=== PATIENT | female | born 1960 | race Two or more races ===

== ENCOUNTER 2019-11-20 08:04 | Inpatient (IN) | payer MEDICAID ==
[~2019-11-20] VITALS: Ht 160 cm; Wt 67.1 kg
[2019-11-20] MEDS ORDERED: ASPIRIN 81MG TABLET PO ONE (08:45)
[2019-11-20] MEDS ORDERED: DILTIAZEM HCL 5MG/ML 5ML VIAL IV ONE (08:45)
[2019-11-20] MEDS ORDERED: DILTIAZEM HCL 125 MG in DEXT 5% WATER 100 ML IV ONE (08:45)
[2019-11-20 09:11] LABS: BASOPHILS % 0.5 % (0.0-2.0); EOSINOPHILS % 1.1 % (0.0-5.0); HEMOGLOBIN. 13.8 g/dL (12.0-16.0); LYMPHOCYTES % 33.5 % (20.0-50.0); MEAN CORPUSCULAR HEMOGLOBIN 30.7 pg (28.0-32.0); MEAN CORPUSCULAR VOLUME 91.5 fL (81.0-99.0); MEAN PLATELET VOLUME 8.5 fl (7.4-10.4); MONOCYTES % 6.6 % (2.0-8.0); NEUTROPHILS % 58.3 % (40.0-76.0); PLATELET 297 x1000/uL (130-400); RED BLOOD CELL COUNT 4.49 mill/uL (4.2-5.4); RED CELL DISTRIBUTION WIDTH 14.8 % (11.6-14.6)
[2019-11-20 09:17] LABS: CHLORIDE 105 mEq/L (98-107)
[2019-11-20 09:20] LABS: INR 1.1; PARTIAL THROMBOPLASTIN TIME 29.4 sec (23.4-31.0); PROTHROMBIN TIME 11.6 sec (9.6-11.0)
[2019-11-20] MEDS ORDERED: SODIUM CHLORIDE 0.9% 1,000 ML IV ONE (09:45)
[2019-11-20] MEDS ORDERED: METOPROLOL TARTRATE 5MG/5ML VIAL IV SCH (09:45)
[2019-11-20] MEDS ORDERED: ETOMIDATE 2MG/ML 10ML VIAL IV ONE (11:30)
[2019-11-20] MEDS ORDERED: ACETAMINOPHEN 325MG TABLET PO PRN (15:00)
[2019-11-20] MEDS ORDERED: DIPHENHYDRAMINE 50MG/ML VIAL IV PRN (15:00)
[2019-11-20] MEDS ORDERED: IPRATROPIUM/ALBUTEROL 0.5-3(2.5)MG/3ML NEB HHN PRN (15:00)
[2019-11-20] MEDS ORDERED: ONDANSETRON HCL 4MG/2ML INJ IV PRN (15:00)
[2019-11-20 15:31] LABS: PHOSPHORUS 3.2 mg/dL (2.5-4.9)
[2019-11-20 21:30] VITALS: BP 125/75
[2019-11-20] MEDS ORDERED: RIVA20TA PO (22:38)
[2019-11-20] MEDS ORDERED: P20 PO (22:38)
[2019-11-20] MEDS ORDERED: ASPI-1497 PO (22:38)
[2019-11-20] MEDS ORDERED: LEVO75TA7 PO (22:38)
[2019-11-20] MEDS ORDERED: CARV12.545 PO (22:38)
[2019-11-20] MEDS ORDERED: METF-414 PO (22:38)
[2019-11-20] MEDS ORDERED: TOPUD PO (22:38)
[2019-11-20] MEDS ORDERED: LISI-604 PO (22:38)
[2019-11-20] MEDS ORDERED: ESCI10TA61 PO (22:38)
[2019-11-20] MEDS ORDERED: ALBU18HF2 IH (22:38)
[2019-11-20] MEDS ORDERED: SIMV-43 PO (22:38)
[2019-11-20] MEDS ORDERED: CHOL500063 PO (22:38)
[2019-11-20] MEDS ORDERED: DEXTROSE 50% WATER 50ML SYRINGE IV PRN (22:45)
[2019-11-20] MEDS ORDERED: FAMO-135 PO (23:29)
[2019-11-20] MEDS ORDERED: PANT40TA4 PO (23:29)
[2019-11-21] VITALS: BP 130/66
[2019-11-21 04:00] VITALS: BP 145/77
[2019-11-21 06:07] LABS: BASOPHILS % 0.4 % (0.0-2.0); EOSINOPHILS % 2.1 % (0.0-5.0); HEMATOCRIT. 37.7 % (36.0-48.0); HEMOGLOBIN. 12.9 g/dL (12.0-16.0); LYMPHOCYTES % 33.9 % (20.0-50.0); MEAN CORPUSCULAR HEMOGLOBIN 31.2 pg (28.0-32.0); MEAN CORPUSCULAR VOLUME 91.2 fL (81.0-99.0); MEAN PLATELET VOLUME 8.6 fl (7.4-10.4); MONOCYTES % 9.1 % (2.0-8.0); NEUTROPHILS % 54.5 % (40.0-76.0); PLATELET 224 x1000/uL (130-400); RED BLOOD CELL COUNT 4.13 mill/uL (4.2-5.4); RED CELL DISTRIBUTION WIDTH 14.8 % (11.6-14.6)
[2019-11-21 06:30] LABS: CHLORIDE 110 mEq/L (98-107)
[2019-11-21 06:39] LABS: LDL CHOLESTEROL 128 mg/dL (5-100)
[2019-11-21 06:41] LABS: HDL CHOLESTEROL 60 mg/dL (40-59)
[2019-11-21] MEDS: LEVOTHYROXINE SODIUM 75MCG TABLET PO SCH (07:10)
[2019-11-21] MEDS: INSULIN LISPRO 100 UNITS/ML SUBCUT SCH ×4 (07:40→20:36)
[2019-11-21] MEDS: BLOOD SUGAR DIAGNOSTIC STRIP TEST SCH ×4 (07:51→20:36)
[2019-11-21 08:00] VITALS: BP 140/79
[2019-11-21] MEDS ORDERED: REGADENOSON 0.4 MG/5 ML IV NR (11:15)
[2019-11-21] MEDS: METOPROLOL TARTRATE 25MG TABLET PO SCH ×2 (11:31→20:26)
[2019-11-21 12:00] VITALS: BP 147/83
[2019-11-21 16:00] VITALS: BP 139/83
[2019-11-21] MEDS: RIVAROXABAN 20 MG TABLET PO SCH (17:28)
[2019-11-21 20:00] VITALS: BP 153/92
[2019-11-21] MEDS: LISINOPRIL 10MG TABLET PO SCH (20:27)
[2019-11-21] MEDS ORDERED: ATORVASTATIN CALCIUM 10MG TABLET PO SCH (21:00)
[2019-11-21] MEDS ORDERED: ATORVASTATIN CALCIUM 20MG TABLET PO SCH (21:00)
[2019-11-22] VITALS: BP 127/67
[2019-11-22 04:00] VITALS: BP 148/90
[2019-11-22 06:18] LABS: BASOPHILS % 0.4 % (0.0-2.0); EOSINOPHILS % 1.8 % (0.0-5.0); HEMATOCRIT. 40.6 % (36.0-48.0); HEMOGLOBIN. 13.7 g/dL (12.0-16.0); LYMPHOCYTES % 31.7 % (20.0-50.0); MEAN CORPUSCULAR HEMOGLOBIN 30.9 pg (28.0-32.0); MEAN CORPUSCULAR VOLUME 91.5 fL (81.0-99.0); MEAN PLATELET VOLUME 8.6 fl (7.4-10.4); NEUTROPHILS % 53.1 % (40.0-76.0); PLATELET 237 x1000/uL (130-400); RED BLOOD CELL COUNT 4.44 mill/uL (4.2-5.4); RED CELL DISTRIBUTION WIDTH 14.6 % (11.6-14.6)
[2019-11-22] MEDS: INSULIN LISPRO 100 UNITS/ML SUBCUT SCH ×3 (06:40→17:14)
[2019-11-22] MEDS: BLOOD SUGAR DIAGNOSTIC STRIP TEST SCH ×3 (06:40→17:14)
[2019-11-22] MEDS: LEVOTHYROXINE SODIUM 75MCG TABLET PO SCH (06:42)
[2019-11-22 06:55] LABS: CHLORIDE 106 mEq/L (98-107)
[2019-11-22 08:00] VITALS: BP 128/77
[2019-11-22] MEDS: METOPROLOL TARTRATE 25MG TABLET PO SCH (09:12)
[2019-11-22] MEDS: LISINOPRIL 10MG TABLET PO SCH (09:13)
[2019-11-22 12:00] VITALS: BP 139/90
[2019-11-22 16:00] VITALS: BP 130/74
[2019-11-22] MEDS: RIVAROXABAN 20 MG TABLET PO SCH (17:14)
[2019-11-22] MEDS ORDERED: APIX5TAB MT (19:32)
[2019-11-22 20:17] VITALS: BP 146/88
== END 2019-11-22 21:05 | disposition home or self-care (01) | DRG 201 ==
LOC: ER 08:11 → EDBEDREQTM 13:35 → EDBEDREQ 13:35 → ENRESERV 19:47 → 8WST 21:10
PROVIDERS: ADMIT Internal Medicine; ATTEND Internal Medicine
PROC: 5A2204Z Restoration of Cardiac Rhythm, Single (ICD-10-PCS; principal; 2019-11-20)
DX: I48.0 Paroxysmal atrial fibrillation (principal); J18.9 Pneumonia, unspecified organism; E11.65 Type 2 diabetes mellitus with hyperglycemia; E78.5 Hyperlipidemia, unspecified; I10 Essential (primary) hypertension; E03.9 Hypothyroidism, unspecified; Z79.01 Long term (current) use of anticoagulants; Z79.84 Long term (current) use of oral hypoglycemic drugs; Z82.49 Family history of ischemic heart disease and other diseases of the circulatory system; Z79.82 Long term (current) use of aspirin; Z79.899 Other long term (current) drug therapy
CPT/HCPCS: 36415; 71045; 78452; 80048; 80053; 80061; 82962; 83036; 83735; 83880; 84100; 84443; 84484; 85025; 93005; 93017; 93306; 93970; 96374; 99291; A9500; J3490; J7030; J7060